=== PATIENT | male | born 1935 | race Caucasian/White ===

== ENCOUNTER 2017-06-23 13:53 | Observation (INO) ==
--- NOTE | 2017-06-23 15:28 | Internal Med History&Physical ---
Date of Encounter: 06/23/17 Time of Encounter: 15:22 Assessment and Plan (1) HTN (hypertension) Current visit: Yes Status: Chronic Chronic and noncontrol possible contribution to her TIA Qualifiers: Hypertension type: essential hypertension Qualified Code(s): I10 - Essential (primary) hypertension (2) Hyperlipidemia Current visit: Yes Status: Chronic , chronic recheck in a.m. Qualifiers: Hyperlipidemia type: pure hypercholesterolemia Qualified Code(s): E78.00 - Pure hypercholesterolemia, unspecified; E78.0 - Pure hypercholesterolemia (3) CAD (coronary artery disease) Current visit: Yes Status: Chronic Patient with previous [place] and angioplasty at the detailed record but no chest pain at present Qualifiers: Coronary Disease-Associated Artery/Lesion type: [place] artery [place] vs. transplanted heart: [place] heart Associated angina: without angina Qualified Code(s): I25.10 - Atherosclerotic heart disease of [place] coronary artery without angina pectoris (4) Diabetes 1.5, managed as type 2 Current visit: Yes Status: Chronic Chronic resume home medication and place on sliding scale (5) COPD (chronic obstructive pulmonary disease) Current visit: Yes Status: Chronic Chronic no active wheezing at present Qualifiers: COPD type: emphysema Emphysema type: unspecified Qualified Code(s): J43.9 - Emphysema, unspecified (6) Transient ischemic attack (TIA) Current visit: No Status: Acute Patient with episode of abnormal speech and confusion which is now more or less resolved suggestive of TIA CT of the head was unremarkable we will consult neurology and then MRI of the head and MRA of the brain and carotids and 2-D echo on lipid profile Qualifiers: Transient cerebral ischemia type: unspecified Qualified Code(s): G45.9 - Transient cerebral ischemic attack, unspecified Internal Medicine - H&P: HPI Chief complaint: tia Admitted From: Intrahospital Transfer Plans for Post Hospital Care: Home History of present illness: Mr. Botello is a 81 year old male Patient with history of hypertension, high cholesterol, asthmaCOPD, CAD, with stents., dm Patient was out with the and while sitting at lunch became confused have difficulty speaking and then was brought in to emergency room [facility] By the time he arrived he was feeling much better and then transferred here for follow up evaluation . he is now back to normal at present head CT there was negative. Telemetry neurologist evaluation Dr. Mayes suggested there was no indication for TPA since symptom was alaready resolving. Patient will be admitted for further TIA or stroke work up . No prior history of TIA denies any chest pain no shortness of breath no headaches no visual disturbance no weakness of the lower extremity or upper extremity Past Med Surg Social Fam HX - Past Medical History Medical history: asthma, COPD, coronary artery disease, diabetes, hyperlipidemia , myocardial infarction Psychiatric history: no psych history - Past Surgical History Surgical History: angioplasty/stent, cholecystectomy, other - Social History Smoking Status: Former smoker Alcohol use: none Drug use: none Internal Medicine - H&P: Meds Aspirin 81 mg PO DAILY 12/30/15 [History] Calcium Carbonate/Vitamin D3 [Calcium 500 + D Tablet] 1 tab PO DAILY 12/30/15 [ History] Clopidogrel [Plavix] 75 mg PO DAILY 12/30/15 [History] Denosumab [Prolia (For Outpatient Infusion)] 1 ml IJ Q6M 12/30/15 [History] Finasteride [Proscar] 5 mg PO DAILY 12/30/15 [History] Fluticasone Propionate Nasal [Flonase] 2 spray NS DAILY PRN 12/30/15 [History] Lisinopril [Zestril] 10 mg PO DAILY 12/30/15 [History] Nitroglycerin [Nitrostat] 0.4 mg SL Q5M PRN 12/30/15 [History] Paroxetine [Paxil] 5 mg PO DAILY 12/30/15 [History] Rosuvastatin Calcium [Crestor] 15 mg PO DAILY 12/30/15 [History] 3 Allergy/AdvReac Type Severity Reaction Status Date / Time doxycycline Allergy Itching Verified 12/30/15 07:42 sulfamethoxazole Allergy Itching Verified 12/30/15 07:42 [From Bactrim] trimethoprim [From Bactrim] Allergy Itching Verified 12/30/15 07:42 All Systems PM: A 10-system review of systems was performed and is negative for pertinent findings except as documented above in the HPI. - Constitutional Constitutional: no chills, no fever(s), no night sweats - EENT Eyes: no change in vision, no discharge, no pain, no photophobia Ears: no ear discharge, no ear pain, no tinnitus Nose, mouth and throat: no dysphagia, no nasal discharge, no neck pain, no sore throat - Cardiovascular Cardiovascular ROS IM: no chest pain, no diaphoresis, no dyspnea, no lightheadedness, no palpitations, no syncope - Respiratory Respiratory: no cough, no dyspnea, no wheezing, no excessive phlegm production - Gastrointestinal Gastrointestinal: no abdominal pain, no diarrhea, no hematemesis, no hematochezia, no melena, no nausea, no vomiting - Musculoskeletal Musculoskeletal ROS IM: no numbness, no tingling - Integumentary Integumentary IM: no rash, no unusual bruising - Neurological Neurological ROS: abnormal speech, confusion - Hematologic/Lymphatic Hematologic/Lymphatic: no easy bruising - Head Head exam: Present: atraumatic, normocephalic - Eye Eye exam: Present: PERRL, conjuntiva pink, sclera anicteric Pupils: Present: PERRL - Neck Neck exam general surgery: Present: supple, trachea midline. Absent: lymphadenopathy - Respiratory Respiratory exam: Present: CTAB. Absent: accessory muscle use, rales, rhonchi, wheezes - Cardiovascular Cardiovascular exam: Present: RRR, +S1, +S2. Absent: diastolic murmur, gallop, rubs, systolic murmur - GI/Abdominal GI/Abdominal exam: Present: normal bowel sounds, soft, no peritoneal signs. Absent: distended, tenderness - Extremities Exam Extremities exam: Present: warm, radial pulses palpable and symmetrical. Absent : calf tenderness, cyanotic, pedal edema - Neurological Exam Neurological exam: Present: CN II-XII intact, oriented X3, no focal deficits. Absent: pronater drift, facial droop, speech deficit - Skin Skin exam: Present: dry, intact
[2017-06-23] MEDS ORDERED: Acetaminophen 325 MG TABLET PO PRN (15:35)
[2017-06-23] MEDS ORDERED: Naloxone 0.4 MG/ML INJ IVP PRN (15:35)
[2017-06-23] MEDS ORDERED: traMADol 50 MG TABLET PO PRN (15:35)
[2017-06-23] MEDS ORDERED: Fluticasone Propionate Nasal 50 MCG/SPRAY BOTTLE NS PRN (15:39)
[2017-06-23] MEDS ORDERED: Nitroglycerin 0.4 MG TAB.SUBL SL PRN (15:39)
[2017-06-23] MEDS ORDERED: 0.9 % Sodium Chloride 1,000 ML IVC SCH (15:45)
[2017-06-24 01:06] LABS: Basophils % 0.4 %; Eosinophils # 0.1 K/mcL (0.0-0.6); Eosinophils % 1.8 %; Hematocrit 35.5 % (37.5-50.1); Immature Granulocytes % 0.3 % (0-4); Lymphocytes # 1.3 K/mcL (0.6-4.6); Lymphocytes % 19.3 %; Mean Corpuscular HGB Conc 33.8 g/dL (31.6-35.5); Mean Corpuscular Hemoglobin 32.9 pg (28.0-33.3); Mean Corpuscular Volume 97.3 fL (83.0-100.0); Mean Platelet Volume 10.6 fL (9.4-12.4); Monocytes # 0.7 K/mcL (0.0-1.3); Monocytes % 10.3 %; Neutrophils # 4.5 K/mcL (1.6-8.9); Platelet Count 130 K/mcL (140-400); Red Blood Count 3.65 M/mcL (4.19-5.50); Red Cell Distribution Width 12.6 % (11.5-14.5); Segmented Neutrophils % 67.9 %
[2017-06-24 01:27] LABS: Alanine Aminotransferase 10 Units/L (7-52); Albumin 3.7 g/dL (3.5-5.7); Albumin/Globulin Ratio 2.2 (1.1-2.2); Alkaline Phosphatase 48 Units/L (34-104); Aspartate Amino Transferase 11 Units/L (13-39); BUN/Creatinine Ratio 17 (6-26); Blood Urea Nitrogen 19 mg/dL (8-23); Calcium 8.7 mg/dL (8.6-10.3); Carbon Dioxide 24 mEq/L (23-29); Chloride 107 mEq/L (98-107); Chol/HDL Ratio 2.2 (0-4.9); Cholesterol 97 mg/dL (< 200); Globulin 1.7 g/dL (2.4-3.5); Glucose 135 mg/dL (70-105); HDL Cholesterol 44 mg/dL (40-59); LDL Cholesterol,Calculated 26 mg/dL (0-99); Magnesium 1.8 mg/dL (1.6-2.6); Osmolality,Calculated 288 (280-300); Potassium 3.4 mEq/L (3.5-5.1); Sodium 137 mEq/L (136-145); Total Protein 5.4 g/dL (6.4-8.9); Triglycerides 134 mg/dL (< 150); eGFR For African Americans > 60 (> 60); eGFR For Non-African Americans > 60 (> 60)
[2017-06-24 08:09] VITALS: BP 130/75
[2017-06-24] MEDS ORDERED: VITAMIN D3 PO SCH (09:00)
[2017-06-24] MEDS ORDERED: CALCIUM CARBONATE PO SCH (09:00)
[2017-06-24] MEDS ORDERED: Finasteride 5 MG TABLET PO SCH (09:00)
[2017-06-24] MEDS ORDERED: Aspirin 81 MG TAB.CHEW PO SCH (09:00)
--- NOTE | 2017-06-24 10:44 | Neurology - Consult Note ---
Date of Encounter: 06/24/17 Time of Encounter: 10:40 Assessment and Plan (1) Confusion Current Visit: Yes Status: Acute One episode of confusion without focal weakness or sensory deficit concerning for TIA. Work up including MRI of brain, MRA of brain and neck and echo were negative for stroke and source of emboli. He is already on a combination of aspirin and plavix and would simply continuing on those, with statin therapy. Patient's neurological status returned to baseline and he is to discharged home from neurology perspective. He is to follow up with PCP with regard to this TIA incidence. Thank you very much for the consultation total time spend on this case was approximately 50 minutes History of Present Illness Chief complaint: confusion HPI: Mr. Botello is a 81 year old male with PMH significant for DM, NINA, allergic rhinitis, HTN, GERD, CAD, hyperlipidemia who developed an episode of confusion yesterday at noon. Patient was eating lunch along with his and suddenly became confused. no focal weakness reported. By the time he arrived ER his symptoms resolved. Initial CT of head was negative for stroke. He was considered no to be tPA candidate due to rapid resolution of symptoms. At the time of this interview, his neurological status recovered to baseline. Past Med Surg Social Fam HX - Past Medical History Medical history: asthma, COPD, coronary artery disease, diabetes, hyperlipidemia , myocardial infarction Psychiatric history: no psych history - Past Surgical History Surgical History: angioplasty/stent, cholecystectomy, other - Social History Smoking Status: Former smoker Alcohol use: none Drug use: none Medications and Allergies Aspirin 81 mg PO DAILY 12/30/15 [History] Calcium Carbonate/Vitamin D3 [Calcium 500 + D Tablet] 1 tab PO DAILY 12/30/15 [ History] Clopidogrel [Plavix] 75 mg PO DAILY 12/30/15 [History] Denosumab [Prolia (For Outpatient Infusion)] 60 mg IJ [id number] 12/30/15 [History ] Finasteride [Proscar] 5 mg PO DAILY 12/30/15 [History] Fluticasone Propionate Nasal [Flonase] 2 spray NS DAILY PRN 12/30/15 [History] Lisinopril [Zestril] 10 mg PO DAILY 12/30/15 [History] Nitroglycerin [Nitrostat] 0.4 mg SL Q5M PRN 12/30/15 [History] Paroxetine [Paxil] 5 mg PO DAILY 12/30/15 [History] Rosuvastatin Calcium [Crestor] 15 mg PO DAILY 12/30/15 [History] Pantoprazole Sodium [Protonix] 40 mg PO DAILY 06/23/17 [History] Sucralfate [Carafate] 1 gm PO QID PRN 06/23/17 [History] 3 Allergy/AdvReac Type Severity Reaction Status Date / Time doxycycline Allergy Itching Verified 12/30/15 07:42 sulfamethoxazole Allergy Itching Verified 12/30/15 07:42 [From Bactrim] trimethoprim [From Bactrim] Allergy Itching Verified 12/30/15 07:42 All Systems: The remainder of the systems were reviewed and are negative Physical Examination - Vital Signs Vital Signs: Initial Vital Signs Temp Pulse Resp BP Pulse Ox 97.8 F 64 16 156/75 98 06/23/17 15:27 06/23/17 15:27 06/23/17 15:27 06/23/17 15:27 06/23/17 15:27 - Constitutional General appearance: comfortable - Neurologic Detailed motor examination: full strength in all major muscle groups Motor examination - right side: 5/5: deltoids, biceps, triceps, wrist flexion, wrist extension, cost recorder, hip flexors, tibialis Anterior, quadriceps, toe extension (EHL), plantarflexion Motor examination - left side: 5/5: deltoids, biceps, triceps, wrist flexion, wrist extension, hip flexors, cost recorder, quadriceps, tibialis Anterior, toe extension (EHL), plantarflexion Detailed sensory examination: intact Posture: other (None) Reflex and gait examination: intact Reflexes: Biceps: 2+, Triceps: 2+, Brachioradialis: 2+, Patella: 2+, Achilles: 2 + Mental Status Examination: awake, alert, oriented to person, oriented to place, oriented to time, follows commands appropriately, answers questions appropriately, no agnosia, no aphasia, no aproxia Cranial nerve examination: PERRL, EOMI, visual paez intact, corneal reflexes brisk symmetrically, sensory to face intact, mastication intact, no facial asymmetry is present, no dysarthria, hearing is intact symmetrically, soft palate elevates bilaterally upon phonation, gag reflex intact, flexes SCM and trapezius muscles symmetrically with full power, tongue protrudes midline, no atrophy or facial fasiculations present Cerebellar examination: no dysmetria, performs finger to nose and heel to rubin symmetrically without ataxia, no gait ataxia, no truncal ataxia, no difficulty with rapid alternating movements Results - Laboratory Findings CBC and BMP: 06/24/17 00:55 06/24/17 00:55 Abnormal lab findings: Abnormal lab results RBC 3.65 M/mcL (4.19-5.50) L 06/24/17 00:55 Hgb 12.0 g/dL (12.9-16.9) L D 06/24/17 00:55 Hct 35.5 % (37.5-50.1) L 06/24/17 00:55 Plt Count 130 K/mcL (140-400) L 06/24/17 00:55 Potassium 3.4 mEq/L (3.5-5.1) L 06/24/17 00:55 Glucose 135 mg/dL (70-105) H 06/24/17 00:55 AST 11 Units/L (13-39) L 06/24/17 00:55 Serum Total Protein 5.4 g/dL (6.4-8.9) L 06/24/17 00:55 Globulin 1.7 g/dL (2.4-3.5) L 06/24/17 00:55 - Diagnostic Findings Additional findings: MR/MR angio head wo con IMPRESSION: 1. No acute infarct, intracranial hemorrhage, or significant mass effect. 2. Chronic small vessel ischemic white matter disease and cerebral volume loss. 3. No high-grade stenosis or focal occlusion involving intracranial vasculature. No evidence of intracranial aneurysm. EV/EV echocardiogram Impressions: LVEF 65%. Mild left ventricular diastolic dysfunction. Normal right ventricular structure and function. Interatrial septum not well evaluated. Mild pulmonary hypertension. MR/MR angio neck wo/w con IMPRESSION: 1. No high-grade stenosis or focal occlusion involving the cervical vasculature. 2. Atherosclerotic disease at bilateral carotid bifurcation, without flow-limiting stenosis by NASCET criteria. Consult Discharge Plan - Plan Referrals: Michi Hernandez MD [Primary Care Provider] -
--- NOTE | 2017-06-24 13:15 | Discharge Summary ---
Date of Encounter: 06/24/17 Time of Encounter: 10:50 - Discharge Diagnosis (1) TIA (transient ischemic attack) Priority: Primary Status: Acute Comments: Patient was admitted to the emergency room with episode of abnormal speech confusion. All symptoms have resolved. CT of head was unremarkable MRI of the head, neck, brain all negative. Noted on the MR of the neck, there is atherosclerotic disease of bilateral carotid bifurcation without flow-limiting stenosis. Patient's troponins were negative. His triglycerides and cholesterol are within normal limits. Patient was evaluated by neurology who recommended patient continue aspirin, Plavix, statin home doses. He feel there is no further neurological testing warranted at this time and the patient should follow up with primary care after discharge. Patient has no focal neurological deficits on exam, his speech is clear. He states that he feels dizzy if he is back to normal other than the fact that he is tired of being here and tired of being in the bed since he is normally very active every day. Qualifiers: Transient cerebral ischemia type: unspecified Qualified Code(s): G45.9 - Transient cerebral ischemic attack, unspecified (2) CAD (coronary artery disease) Priority: Secondary Status: Chronic Comments: Patient denies chest pain. Continue aspirin, statin, Plavix. Qualifiers: Coronary Disease-Associated Artery/Lesion type: [place] artery [place] vs. transplanted heart: [place] heart Associated angina: without angina Qualified Code(s): I25.10 - Atherosclerotic heart disease of [place] coronary artery without angina pectoris (3) COPD (chronic obstructive pulmonary disease) Priority: Secondary Status: Chronic Comments: Chronic. No acute exacerbation. Continue home medications Qualifiers: COPD type: emphysema Emphysema type: unspecified Qualified Code(s): J43.9 - Emphysema, unspecified (4) Diabetes 1.5, managed as type 2 Priority: Secondary Status: Chronic Comments: Chronic. Continue home medications and Accu-Chek schedule at home. (5) HTN (hypertension) Priority: Secondary Status: Chronic Comments: Chronic. Well controlled. Continue medication Qualifiers: Hypertension type: essential hypertension Qualified Code(s): I10 - Essential (primary) hypertension (6) Hyperlipidemia Priority: Secondary Status: Chronic Comments: Chronic. Continue statin. Qualifiers: Hyperlipidemia type: pure hypercholesterolemia Qualified Code(s): E78.00 - Pure hypercholesterolemia, unspecified; E78.0 - Pure hypercholesterolemia Hospital course: Mr. Botello is a 81 year old male with PMH of HLD, HTN, CAD, presented to the ED with c/o change in speech and confusion. Symptoms resolved but is having increasing emergency room. Head CT was negative, MRI head, neck, HEENT all negative. Troponins are negative EKG was normal sinus rhythm. Chest x-ray was negative. He has been evaluated with neurology and he will continue aspirin, statin, Plavix. Diagnosis is TIA. His return to baseline and is stable and appropriate for discharge. Discharge discussed with: patient, family - Time Spent with Patient Total time spent providing and/or coordinating discharge services: Less than 30 minutes - Discharge Medications Prescriptions: Rosuvastatin Calcium [Crestor] 15 mg PO DAILY #30 tablet Home Medications: Aspirin 81 mg PO DAILY 12/30/15 [History] Calcium Carbonate/Vitamin D3 [Calcium 500-Vit D3 400 Tablet] 1 tab PO DAILY 11/06 [History] Clopidogrel [Plavix] 75 mg PO DAILY 12/30/15 [History] Denosumab [Prolia (For Outpatient Infusion)] 60 mg IJ [id number] 12/30/15 [History ] Finasteride [Proscar] 5 mg PO DAILY 12/30/15 [History] Fluticasone Propionate Nasal [Flonase] 2 spray NS DAILY PRN 12/30/15 [History] Lisinopril [Zestril] 10 mg PO DAILY 12/30/15 [History] Nitroglycerin [Nitrostat] 0.4 mg SL Q5M PRN 12/30/15 [History] Paroxetine [Paxil] 5 mg PO DAILY 12/30/15 [History] Pantoprazole Sodium [Protonix] 40 mg PO DAILY 06/23/17 [History] Sucralfate [Carafate] 1 gm PO QID PRN 06/23/17 [History] Rosuvastatin Calcium [Crestor] 15 mg PO DAILY #30 tablet 06/24/17 [Rx] Allergies/Adverse Reactions: 3 Allergy/AdvReac Type Severity Reaction Status Date / Time doxycycline Allergy Itching Verified 12/30/15 07:42 sulfamethoxazole Allergy Itching Verified 12/30/15 07:42 [From Bactrim] trimethoprim [From Bactrim] Allergy Itching Verified 12/30/15 07:42 Date of admission: 06/23/17 14:59 Primary care physician: Michi Hernandez MD Consults: 06/23/17 15:39 Consult to Physician [CONS] Routine Consulting Provider: Timmy Padron Reason for Consult: tia Time Notified: 15:39 Call Completed: Yes Discharging clinician: Trayc Santoyo Anticipated date of discharge: 06/24/17 - Constitutional Vitals: Temp Pulse Resp BP Pulse Ox 98.3 F 57 16 130/75 96 06/24/17 08:08 06/24/17 08:08 06/24/17 08:08 06/24/17 08:08 06/24/17 08:08 - Patient Status Disposition: Home, Self-Care Condition: Good Functional capacity at discharge: independent ambulation Overall status at discharge: patient is back to baseline - Discharge Instructions Follow Up With: Michi Hernandez MD [Primary Care Provider] - 07/05/17 7:30 am () Additional Instructions: Please follow up with your PCP as scheduled. Return to the ER as needed for any other problems or concerns, or if your symptoms return or worsen. Take your medications as directed. Return to your normal diet and activities as tolerated. - Diet and Activity Activity: increase activity as tolerated Diet: advance to your usual diet
== END 2017-06-24 13:46 | disposition home or self-care (01) ==
LOC: 3BNU
PROVIDERS: ADMIT Pediatrics; ATTEND Registered Nurse